=== PATIENT | female | born 1960 | race African-American/Black ===

== ENCOUNTER 2022-02-22 14:38 | Emergency (ER) | payer MEDICARE ==
[~2022-02-22] VITALS: Ht 170.2 cm; Wt 68.2 kg
[2022-02-22 15:10] VITALS: BP 162/102
[2022-02-22] MEDS ORDERED: LIDOCAINE 1% 10 ML VIAL PERC ONE (15:45)
[2022-02-22] MEDS ORDERED: BUPIVACAINE HCL/PF 0.25% 10 ML VIAL PERC ONE (15:45)
[2022-02-22] MEDS ORDERED: PERTUSS(ACELL),DIPH,TET VAC/PF 0.5 ML SYRINGE IM. ONE (15:45)
[2022-02-22] MEDS ORDERED: BACITRACIN 0.9 GM PACKET OINTMENT TP ONE (16:30)
== END 2022-02-22 16:32 | disposition home or self-care (01) ==
LOC: EMS 14:49
DX: S61.212A Laceration without foreign body of right middle finger without damage to nail, initial encounter (principal); F12.90 Cannabis use, unspecified, uncomplicated; Z88.8 Allergy status to other drugs, medicaments and biological substances; Z91.030 Bee allergy status; W45.8XXA Other foreign body or object entering through skin, initial encounter; Y93.89 Activity, other specified; Y92.89 Other specified places as the place of occurrence of the external cause; Y99.8 Other external cause status
CPT/HCPCS: 12001; 90471; 90715; 99283; J3490 ×2